=== PATIENT | female | born 1990 | race African-American/Black ===

== ENCOUNTER 2017-04-30 18:39 | Emergency (ER) | payer MEDICAID, OTHER ==
[~2017-04-30] VITALS: Ht 165.1 cm; Wt 126.6 kg
[2017-04-30 18:42] VITALS: BP 132/96
[2017-04-30 20:48] LABS: MEAN CORPUSCULAR HEMOGLOBIN 29.9 pg (27.0-34.8); MEAN CORPUSCULAR HGB CONC 33.3 g/dL (32.4-35.8); MEAN PLATELET VOLUME 8.2 fL (7.4-10.4); PLATELET COUNT 394 x10^3/uL (130-400); RED BLOOD COUNT 4.61 x10^6/uL (3.82-5.3); RED CELL DISTRIBUTION WIDTH 14.4 % (9.6-15.2)
[2017-04-30 20:53] LABS: ALANINE AMINOTRANSFERASE 21 U/L (12-78); ALBUMIN 3.4 g/dL (3.4-5.0); ANION GAP 8 mmol/L (5-15); CHLORIDE 108 mmol/L (98-107); CREATININE 0.75 mg/dL (0.55-1.02)
[2017-04-30 20:54] LABS: MICROSCOPIC NOT IND
[2017-04-30 20:55] LABS: HCG UR SG 1.033 (1.003-1.030)
[2017-04-30 20:55] LABS: ALKALINE PHOSPHATASE 70 U/L (45-117); BILIRUBIN,TOTAL 0.3 mg/dL (0.2-1.0); TOTAL PROTEIN 7.2 g/dL (6.4-8.2)
[2017-04-30 20:58] LABS: CULTURE INDICATED? NO
[2017-04-30 21:04] LABS: AMPHETAMINE SCREEN, URINE Negative (Negative); BARBITURATE SCREEN, URINE Negative (Negative); BENZODIAZEPINE SCREEN, URINE Negative (Negative); CANNABINOID SCREEN, URINE Negative (Negative); COCAINE SCREEN, URINE Negative (Negative); METHADONE SCREEN, URINE Negative (Negative); OPIATE SCREEN, URINE Negative (Negative)
[2017-04-30 21:20] LABS: BASOPHILS # (AUTO) 0.05 x10^3/uL (0-0.1); BASOPHILS % (AUTO) 1 % (0-1); EOSINOPHILS # (AUTO) 0.25 x10^3/uL (0-0.4); EOSINOPHILS % (AUTO) 2 % (1-7); LYMPHOCYTES % (AUTO) 25 % (22-44); MD SCAN; MONOCYTES % (AUTO) 7 % (2-9); NEUTROPHILS # (AUTO) 7.81 x10^3/uL (1.8-6.8); NEUTROPHILS % (AUTO) 66 % (42-75)
== END 2017-04-30 22:19 | disposition home or self-care (01) ==
LOC: ED 22:13
DX: R10.11 Right upper quadrant pain (principal); R10.13 Epigastric pain; E66.9 Obesity, unspecified
CPT/HCPCS: 36415; 80053; 80307; 81003; 81025; 83690; 85025; 99284

== ENCOUNTER 2017-05-07 01:42 | Emergency (ER) | payer MEDICAID ==
[~2017-05-07] VITALS: Ht 165.1 cm; Wt 124.6 kg
[2017-05-07 01:44] VITALS: BP 123/87
== END 2017-05-07 02:56 | disposition left against medical advice (07) ==
LOC: ED 02:42
DX: Z53.21 Procedure and treatment not carried out due to patient leaving prior to being seen by health care provider (principal)

== ENCOUNTER 2018-09-28 01:22 | Emergency (ER) | payer MEDICAID, OTHER ==
[~2018-09-28] VITALS: Ht 180.3 cm; Wt 88.0 kg
--- NOTE | 2018-09-28 02:22 | NUR ---
dr musa evaluated pt at bed side pt is psychosis dr musa wants to put telepsychic eval this rn was in rm given gown and pt's belongings kept in locker . pt stated " if this doctor didnt give me adderal then i will kill him " dr slater stated pt is dangerous for just given med and dc . pt will be done telepsychic consult. informed to pt and pt understood. pt is in gurney pt wants to lihgt off and wants to sleep now. urine was obtained TRAV in lab
[2018-09-28] MEDS ORDERED: LORazepam 1MG TABLET PO ONE (02:30)
[2018-09-28 02:37] LABS: AMPHETAMINE SCREEN, URINE Negative (Negative); BARBITURATE SCREEN, URINE Negative (Negative); BENZODIAZEPINE SCREEN, URINE Negative (Negative); CANNABINOID SCREEN, URINE Negative (Negative); COCAINE SCREEN, URINE Negative (Negative); METHADONE SCREEN, URINE Negative (Negative); OPIATE SCREEN, URINE Negative (Negative)
[2018-09-28 02:55] LABS: MEAN CORPUSCULAR HEMOGLOBIN 30.6 pg (27.0-34.8); MEAN CORPUSCULAR HGB CONC 33.2 g/dL (32.4-35.8); MEAN CORPUSCULAR VOLUME 92.1 fL (80-100); MEAN PLATELET VOLUME 7.6 fL (7.4-10.4); PLATELET COUNT 364 x10^3/uL (130-400); RED BLOOD COUNT 3.85 x10^6/uL (3.82-5.3); RED CELL DISTRIBUTION WIDTH 14.4 % (9.6-15.2)
[2018-09-28 03:02] LABS: ANION GAP 4 mmol/L (5-15); CALCIUM 8.7 mg/dL (8.5-10.1); CHLORIDE 109 mmol/L (98-107)
[2018-09-28 03:05] LABS: SALICYLATE LEVEL < 1.7 mg/dL (2.8-20.0)
[2018-09-28 03:08] LABS: ALANINE AMINOTRANSFERASE 19 U/L (12-78); ALKALINE PHOSPHATASE 75 U/L (45-117); BILIRUBIN,TOTAL 0.3 mg/dL (0.2-1.0); CREATININE 0.87 mg/dL (0.55-1.02); TOTAL PROTEIN 6.8 g/dL (6.4-8.2)
[2018-09-28 03:23] LABS: BASOPHILS # (AUTO) 0.06 x10^3/uL (0-0.1); BASOPHILS % (AUTO) 1 % (0-1); EOSINOPHILS # (AUTO) 0.26 x10^3/uL (0-0.4); EOSINOPHILS % (AUTO) 3 % (1-7); LYMPHOCYTES # (AUTO) 2.33 x10^3/uL (1-3.4); LYMPHOCYTES % (AUTO) 25 % (22-44); MD SCAN; MONOCYTES # (AUTO) 0.62 x10^3/uL (0.2-0.8); MONOCYTES % (AUTO) 7 % (2-9); NEUTROPHILS # (AUTO) 6.18 x10^3/uL (1.8-6.8); NEUTROPHILS % (AUTO) 65 % (42-75)
--- NOTE | 2018-09-28 03:40 | NUR ---
pt is still sleeping telepsych at door
[2018-09-28 03:50] VITALS: BP 129/87
[2018-09-28] MEDS ORDERED: AMPH30TA2 PO (03:51)
--- NOTE | 2018-09-28 03:54 | NUR ---
vss updated pt was able to awake telepsych at door
--- NOTE | 2018-09-28 04:25 | NUR ---
telepsych is in rm answered all question from telepsych md
--- NOTE | 2018-09-28 04:51 | NUR ---
retalepsych is in rm after dr musa talked pt regarding pt's telepsych consult
--- NOTE | 2018-09-28 05:27 | NUR ---
telepsych is done pt is back to sleep now
--- NOTE | 2018-09-28 06:19 | NUR ---
telepsych is in rm now
--- NOTE | 2018-09-28 06:23 | NUR ---
given dc instruction
--- NOTE | 2018-09-28 06:23 | NUR ---
pt will be dc'd security was called for escorted pt out
== END 2018-09-28 06:26 | disposition home or self-care (01) ==
LOC: ED 02:12
DX: F20.1 Disorganized schizophrenia (principal); Z72.9 Problem related to lifestyle, unspecified; F17.200 Nicotine dependence, unspecified, uncomplicated
CPT/HCPCS: 36415; 80053; 80307; 84703; 85025; 99284

== ENCOUNTER 2018-10-29 11:38 | Inpatient (IN) | payer MEDICAID ==
[~2018-10-29] VITALS: Ht 180.3 cm; Wt 144.9 kg
[2018-11-08 19:42] VITALS: BP 139/90
== END 2018-11-09 09:00 | disposition home or self-care (01) | DRG 751 ==
LOC: 3E 12:35
PROVIDERS: ADMIT Psychiatry & Neurology Psychosomatic Medicine; ATTEND Psychiatry & Neurology Psychosomatic Medicine
DX: F33.2 Major depressive disorder, recurrent severe without psychotic features (principal); E66.01 Morbid (severe) obesity due to excess calories; R45.851 Suicidal ideations; F17.210 Nicotine dependence, cigarettes, uncomplicated; Z68.41 Body mass index [BMI] 40.0-44.9, adult; F29 Unspecified psychosis not due to a substance or known physiological condition; F60.3 Borderline personality disorder; F90.9 Attention-deficit hyperactivity disorder, unspecified type; R45.850 Homicidal ideations; Z59.0 Homelessness
CPT/HCPCS: 36415; 71045; 80048; 80061; 81003; 82140; 82607; 84439; 84443; 84703; 85025; 85651; 86592; 86803; 87340; 87806; 93005; G0475

== ENCOUNTER 2018-11-20 16:57 | Inpatient (IN) | payer MEDICAID ==
[~2018-11-20] VITALS: Ht 175.3 cm; Wt 150.3 kg
== END 2018-11-25 15:00 | disposition home or self-care (01) | DRG 751 ==
LOC: 3E 19:49
PROVIDERS: ADMIT Psychiatry & Neurology Psychosomatic Medicine; ATTEND Psychiatry & Neurology Psychosomatic Medicine
DX: F33.3 Major depressive disorder, recurrent, severe with psychotic symptoms (principal); R45.851 Suicidal ideations; E66.01 Morbid (severe) obesity due to excess calories; Z68.42 Body mass index [BMI] 45.0-49.9, adult; F60.3 Borderline personality disorder; F90.9 Attention-deficit hyperactivity disorder, unspecified type; K80.20 Calculus of gallbladder without cholecystitis without obstruction; Z72.0 Tobacco use; Y92.89 Other specified places as the place of occurrence of the external cause
CPT/HCPCS: 36415; 80053; 81003; 85025; 92523-GN